=== PATIENT | female | born 1975 | race Caucasian/White ===

== ENCOUNTER → 2017-10-03 | Outpatient (CLI) | payer MEDICARE ==
[~2017-10-03] MED LIST: BREX4TAB PO; BUPR150T73 PO; HYDR-3240 PO; LEVO500T8 PO; LEVO50TA5 PO; LEVO80CA PO; LORA2TAB99 PO; OXYC5TAB3 PO; POLY17PO5 PO; PRED10TA14 PO; PRED20TA PO; PREG75CA PO; PYRI60TA2 PO; QUET200T6 PO; TOPI200T25 PO; VORT20TA PO; ZIPR60CA2 PO
== END | disposition home or self-care (01) ==
LOC: CFH 14:47
PROVIDERS: ATTEND Nurse Practitioner
DX: M51.25 Other intervertebral disc displacement, thoracolumbar region (principal); M51.27 Other intervertebral disc displacement, lumbosacral region; M51.26 Other intervertebral disc displacement, lumbar region; M51.36 Other intervertebral disc degeneration, lumbar region; R20.2 Paresthesia of skin; R53.1 Weakness
CPT/HCPCS: 70551; 72148

== ENCOUNTER → 2017-11-07 | Outpatient (CLI) | payer MEDICARE | END | disposition home or self-care (01) | LOC: RAD 17:22 | PROVIDERS: ATTEND Nurse Practitioner | DX: M50.322 Other cervical disc degeneration at C5-C6 level (principal); M25.78 Osteophyte, vertebrae | CPT/HCPCS: 72141 ==

== ENCOUNTER 2017-12-20 18:00 | Emergency (ER) | payer MEDICARE ==
[~2017-12-20] VITALS: Ht 160 cm; Wt 80.0 kg
[2017-12-20 18:43] LABS: BASOPHILS # (AUTO) 0.03 x10^3/uL (0-0.1); BASOPHILS % (AUTO) 0 % (0-1); EOSINOPHILS # (AUTO) 0.12 x10^3/uL (0-0.4); EOSINOPHILS % (AUTO) 1 % (1-7); LYMPHOCYTES # (AUTO) 3.21 x10^3/uL (1-3.4); LYMPHOCYTES % (AUTO) 31 % (22-44); MD NO; MEAN CORPUSCULAR HEMOGLOBIN 28.2 pg (27.0-34.8); MEAN CORPUSCULAR HGB CONC 33.6 g/dL (32.4-35.8); MEAN CORPUSCULAR VOLUME 84.1 fL (80-100); MEAN PLATELET VOLUME 7.1 fL (7.4-10.4); MONOCYTES # (AUTO) 0.96 x10^3/uL (0.2-0.8); MONOCYTES % (AUTO) 9 % (2-9); NEUTROPHILS # (AUTO) 5.93 x10^3/uL (1.8-6.8); NEUTROPHILS % (AUTO) 58 % (42-75); PLATELET COUNT 324 x10^3/uL (130-400); RED BLOOD COUNT 5.07 x10^6/uL (3.82-5.3); RED CELL DISTRIBUTION WIDTH 14.1 % (9.6-15.2)
[2017-12-20 18:53] LABS: ALANINE AMINOTRANSFERASE 23 U/L (12-78); ALBUMIN 3.9 g/dL (3.4-5.0); ANION GAP 10 mmol/L (5-15); CHLORIDE 108 mmol/L (98-107); CREATININE 0.86 mg/dL (0.55-1.02)
[2017-12-20 18:58] LABS: ALKALINE PHOSPHATASE 44 U/L (45-117); BILIRUBIN,TOTAL 0.4 mg/dL (0.2-1.0); TOTAL PROTEIN 7.8 g/dL (6.4-8.2)
[2017-12-20] MEDS ORDERED: TRAM50TA2 PO (19:08)
[2017-12-20] MEDS ORDERED: GABA300C10 PO (19:08)
[2017-12-20] MEDS ORDERED: NORE0.3513 PO (19:08)
[2017-12-20] MEDS ORDERED: MECLIZINE CHEWABLE 25 MG TAB ONE (19:11)
[2017-12-20] MEDS ORDERED: MECLIZINE CHEWABLE 25 MG TAB PO ONE (19:30)
[2017-12-20 20:10] LABS: MICROSCOPIC NOT IND
[2017-12-20 20:15] LABS: CULTURE INDICATED? NO
[2017-12-20 20:22] LABS: AMPHETAMINE SCREEN, URINE Negative (Negative); BARBITURATE SCREEN, URINE Negative (Negative); BENZODIAZEPINE SCREEN, URINE Negative (Negative); CANNABINOID SCREEN, URINE Negative (Negative); COCAINE SCREEN, URINE Negative (Negative); METHADONE SCREEN, URINE Negative (Negative); OPIATE SCREEN, URINE Negative (Negative)
[2017-12-20] MEDS ORDERED: HYDROcodone/APAP 5/325 TABLET ONE (20:38)
[2017-12-20] MEDS ORDERED: KETOROLAC 30 MG/1 ML ONE (20:38)
[2017-12-20] MEDS ORDERED: HYDROcodone/APAP 5/325 TABLET PO ONE (21:00)
[2017-12-20] MEDS ORDERED: KETOROLAC 30 MG/1 ML IM ONE (21:00)
[2017-12-20 21:04] VITALS: BP 131/84
== END 2017-12-20 21:46 | disposition home or self-care (01) ==
LOC: ED 21:10
DX: S16.1XXA Strain of muscle, fascia and tendon at neck level, initial encounter (principal); R42 Dizziness and giddiness; F32.9 Major depressive disorder, single episode, unspecified; Z79.899 Other long term (current) drug therapy; X58.XXXA Exposure to other specified factors, initial encounter; Y93.89 Activity, other specified; Y99.8 Other external cause status; Y92.89 Other specified places as the place of occurrence of the external cause
CPT/HCPCS: 36415; 70450; 80053; 80307; 81003; 84703; 85025; 93005; 96372; 99285; J1885

== ENCOUNTER 2019-12-14 07:56 | Outpatient (CLI) | payer MEDICARE ==
[~2019-12-14 07:56] MED LIST changes: +B12 SQ; +BACL20TA PO; +DIAZ10TA PO; +GABA300C10 PO; +IVIG IV; +MODA100T2 PO; +NORE0.3513 PO; +ONDA8TAB9 PO; -QUET200T6 PO; +QUET200T7 PO; +RIZA10TA20 PO; +TRAM50TA2 PO; +VALA500T4 PO
== END 2019-12-14 23:59 | disposition home or self-care (01) ==
LOC: STAR 07:56
PROVIDERS: ATTEND Internal Medicine
DX: Z11.59 Encounter for screening for other viral diseases (principal); Z01.818 Encounter for other preprocedural examination; R59.0 Localized enlarged lymph nodes
CPT/HCPCS: U0001

== ENCOUNTER → 2019-12-17 | Outpatient (CLI) | payer MEDICARE ==
[~2019-12-17] MED LIST changes: +OMNIPAQUE 350 MG/ML, 75ML BOTTLE ONE
== END | disposition home or self-care (01) ==
LOC: CFH 14:31
PROVIDERS: ATTEND Internal Medicine
DX: R59.0 Localized enlarged lymph nodes (principal); M47.815 Spondylosis without myelopathy or radiculopathy, thoracolumbar region; M43.26 Fusion of spine, lumbar region
CPT/HCPCS: 71260; Q9967

== ENCOUNTER 2019-12-18 08:48 | Day surgery (SDC) | payer MEDICARE ==
[~2019-12-18] VITALS: Ht 160 cm; Wt 63.3 kg
[~2019-12-18 08:48] MED LIST changes: -OMNIPAQUE 350 MG/ML, 75ML BOTTLE ONE
[2019-12-18] MEDS ORDERED: LACTATED RINGERS 1,000 ML IV SCH (09:30)
[2019-12-18] MEDS ORDERED: LIDOCAINE-MPF 1%, 2ML INFIL ONE (09:30)
[2019-12-18] MEDS ORDERED: CHLORHEXIDINE 15 ML UDC MM ONE (09:30)
[2019-12-18 09:33] VITALS: BP 122/90
[2019-12-18] MEDS ORDERED: LIDOCAINE-MPF 1%, 2ML ONE (09:37)
[2019-12-18] MEDS ORDERED: PLEASE ENTER ALLERGIES MC SCH (10:00)
[2019-12-18 10:28] LABS: HCG UR SG 1.029 (1.003-1.030)
[2019-12-18] MEDS ORDERED: FENTANYL PF 100 MCG/2ML ONE (10:32)
[2019-12-18] MEDS ORDERED: MIDAZOLAM 1 MG/ML, 2ML ONE (10:32)
[2019-12-18] MEDS ORDERED: DEXAMETHASONE 4 MG/ML, 1ML ONE (10:34)
[2019-12-18] MEDS ORDERED: ONDANSETRON 2MG/ML, 2ML ONE ×2 (10:34→12:38)
[2019-12-18] MEDS ORDERED: PROPOFOL 10 MG/ML, 20ML ONE (10:34)
[2019-12-18] MEDS ORDERED: ROCURONIUM 10MG/ML,5ML ONE (10:34)
[2019-12-18] MEDS ORDERED: SUGAMMADEX 200 MG/2 ML IVPush ONE (11:10)
[2019-12-18] MEDS ORDERED: OXYcodone 5 MG/5 ML ORAL.SOL UDC PO PRN (12:00)
[2019-12-18] MEDS ORDERED: FENTANYL PF 100 MCG/2ML IV PRN (12:00)
[2019-12-18] MEDS ORDERED: EPHEDRINE 50 MG/ML, 1ML IVPush PRN (12:00)
[2019-12-18] MEDS ORDERED: ACETAMINOPHEN 325 MG TABLET PO PRN (12:00)
[2019-12-18] MEDS ORDERED: ONDANSETRON 2MG/ML, 2ML IV PRN (12:00)
[2019-12-18] MEDS ORDERED: LABETALOL 5MG/ML, 20ML IV PRN (12:00)
[2019-12-18] MEDS ORDERED: hydrALAzine 20 MG/ML, 1ML IV PRN (12:00)
[2019-12-18] MEDS ORDERED: PROMETHAZINE 25 MG/ML, 1ML IV PRN (12:00)
[2019-12-18] MEDS ORDERED: MEPERIDINE/PF 25MG/ML,1ML IVPush PRN (12:00)
[2019-12-18] MEDS ORDERED: HYDROmorphone 2 MG/ML, 1ML IVPush PRN (12:00)
[2019-12-18] MEDS ORDERED: PROMETHAZINE 25 MG/ML, 1ML ONE (12:29)
[2019-12-18] MEDS ORDERED: SCOPOLAMINE 1MG PATCH TD ONE (13:30)
== END 2019-12-18 16:00 | disposition home or self-care (01) ==
LOC: OR 08:48 → OUT 16:00
PROVIDERS: ATTEND Internal Medicine
DX: R59.0 Localized enlarged lymph nodes (principal); E03.9 Hypothyroidism, unspecified; F32.9 Major depressive disorder, single episode, unspecified; F41.9 Anxiety disorder, unspecified; F17.211 Nicotine dependence, cigarettes, in remission; Z79.890 Hormone replacement therapy; Z79.891 Long term (current) use of opiate analgesic; Z79.899 Other long term (current) drug therapy; Z88.2 Allergy status to sulfonamides; Z88.8 Allergy status to other drugs, medicaments and biological substances; Z83.3 Family history of diabetes mellitus; Z82.49 Family history of ischemic heart disease and other diseases of the circulatory system; Z81.1 Family history of alcohol abuse and dependence
CPT/HCPCS: 31624; 31652; 71045; 81025; 87015; 87070; 87102; 87116; 87205; 87206; 88112; 88172; 88173; 88177; 88305; J1100; J2250; J2405; J2550; J2704; J3010; J7120; 31629

== ENCOUNTER → 2020-02-13 | Outpatient (CLI) | payer MEDICARE | END | disposition home or self-care (01) | LOC: LAB 12:26 | PROVIDERS: ATTEND Internal Medicine | DX: R53.83 Other fatigue (principal); R59.0 Localized enlarged lymph nodes; R61 Generalized hyperhidrosis; R06.02 Shortness of breath | CPT/HCPCS: 36415; 83516; 86038; 86160; 86225; 86235; 86255; 86256; 86376; 86431; 86480; 86606; 86698; 87305 ==

== ENCOUNTER → 2020-06-11 | Outpatient (CLI) | payer MEDICARE ==
[~2020-06-11] MED LIST changes: +OMNIPAQUE 350 MG/ML, 75ML BOTTLE ONE
== END | disposition home or self-care (01) ==
LOC: CFH 09:21
PROVIDERS: ATTEND Internal Medicine
DX: R59.0 Localized enlarged lymph nodes (principal)
CPT/HCPCS: 71260; Q9967

== ENCOUNTER → 2020-06-22 | Outpatient (CLI) | payer MEDICARE ==
[~2020-06-22] MED LIST changes: -OMNIPAQUE 350 MG/ML, 75ML BOTTLE ONE
== END | disposition home or self-care (01) ==
LOC: CVU 07:44
PROVIDERS: ATTEND Internal Medicine Cardiovascular Disease
DX: I10 Essential (primary) hypertension (principal); R55 Syncope and collapse
CPT/HCPCS: 93306; 93356

== ENCOUNTER → 2020-10-27 | Outpatient (CLI) | payer MEDICARE ==
[~2020-10-27] MED LIST changes: +HYDR-1067 PO; -HYDR-3240 PO; -OXYC5TAB3 PO; +OXYC5TAB98 PO
== END | disposition home or self-care (01) ==
LOC: CFH 09:31
PROVIDERS: ATTEND Internal Medicine
DX: R59.0 Localized enlarged lymph nodes (principal)
CPT/HCPCS: 71250